=== PATIENT | male | born 1990 | race American Indian/Alaskan Native ===

== ENCOUNTER 2019-02-05 18:00 | Emergency (ER) | payer SELFPAY ==
[2019-02-05 18:08] VITALS: BP 121/74
[2019-02-05 18:30] LABS: Hematocrit 47.8 % (35.5-45.6); Hemoglobin 16.1 gm/dl (11.8-15.2); Mean Corpuscular HGB Conc 34 % (32-34); Mean Corpuscular Volume 91 fl (84-94); Platelet Count 175 K/mm3 (140-440); Red Blood Count 5.24 M/mm3 (3.65-5.03)
[2019-02-05 18:55] LABS: Alanine Aminotransferase 23 units/L (7-56); Albumin 4.6 g/dL (3.9-5); BUN/Creatinine Ratio 18; Blood Urea Nitrogen 16 mg/dL (9-20); Calcium 9.3 mg/dL (8.4-10.2); Hemolysis Index 9
[2019-02-05] MEDS ORDERED: ZOFRAN ODT PO ONE (19:33)
--- NOTE | 2019-02-05 20:12 | Emergency Department Report ---
Vomiting/Diarrhea - HPI Chief Complaint: Nausea/Vomiting/Diarrhea Stated Complaint: DEHYDRATION/DIARRHEA Time Seen by Provider: 02/05/19 19:11 Severity: moderate Nausea/Vomiting Severity: Mild Diarrhea Severity: Moderate Pain Severity: None Symptoms: Yes Watery Diarrhea, Yes Able to Tolerate Fluids, Yes Recent Unusual Foods (chicken "bad"), Yes Contacts w/ Similar Symptoms, No Bloody diarrhea, No Fever, No Recent Untreated Water, No Recent use of Antibiotics, No Family w/ Similar Symptoms, No Rash, No Hematuria, No Recent URI Symptoms ED Review of Systems ROS: Stated complaint: DEHYDRATION/DIARRHEA Other details as noted in HPI Constitutional: denies: chills, fever Eyes: denies: eye pain, eye discharge, vision change ENT: denies: ear pain, throat pain Respiratory: denies: cough, shortness of breath, wheezing Cardiovascular: denies: chest pain, palpitations Endocrine: no symptoms reported Gastrointestinal: nausea, vomiting, diarrhea. denies: abdominal pain, constipation, hematemesis, melena, hematochezia Genitourinary: denies: urgency, dysuria Musculoskeletal: denies: back pain, joint swelling, arthralgia Skin: denies: rash, lesions Neurological: denies: headache, weakness, paresthesias Psychiatric: denies: anxiety, depression Hematological/Lymphatic: denies: easy bleeding, easy bruising ED Past Medical Hx - Past Medical History Previous Medical History?: No - Surgical History Past Surgical History?: No - Social History Smoking Status: Never Smoker Substance Use Type: None - Medications Home Medications: Home Medications Medication Instructions Recorded Confirmed Last Taken Type Diphenoxylate/Atropine [Lomotil] 1 tab PO QID PRN #12 tablet 02/05/19 Unknown Rx Vomiting Diarrhea Exam - Exam General: Vital signs noted. No distress. Alert and acting appropriately. HEENT: Yes Moist Mucous Membranes, No Pharyngeal Erythema, No Pharyngeal Exudates, No Rhinorrhea, No Conjuctival Injection, No Frontal Tenderness, No Maxillary Tenderness Neck: No Adenopathy, No Rigidity Lungs: Yes Clear Lung Sounds, Yes Good Air Exchange, No Wheezes, No Stridor, No Cough, No Nasal Flaring, No Retractions, No Use of Accessory Muscles Heart exam: Regular: Yes, Murmur: No, Tachycardia: No Abdomen: Tenderness: No, Peritoneal Signs: No, Distention: No, Hyperactive Bowel sounds: Yes Skin exam: Rash: No, Edema: No, Normal turgor: Yes Neurologic: Alert and oriented, no deficits. Musculoskeletal: Unremarkable. ED Course Vital Signs 02/05/19 18:06 Temperature 98.6 F Pulse Rate 95 H Respiratory 20 Rate Blood Pressure 121/74 O2 Sat by Pulse 987 H Oximetry ED Medical Decision Making - Lab Data Result diagrams: 02/05/19 18:20 02/05/19 18:20 Labs 02/05/19 02/05/19 18:20 18:20 WBC 10.9 RBC 5.24 H Hgb 16.1 H Hct 47.8 H MCV 91 MCH 31 MCHC 34 RDW 13.0 L Plt Count 175 Seg Neutrophils % [employer] Sodium 140 Potassium 3.8 Chloride 103.1 Carbon Dioxide 22 Anion Gap 19 BUN 16 Creatinine 0.9 Estimated GFR > 60 BUN/Creatinine Ratio 18 Glucose 115 H Calcium 9.3 Total Bilirubin 2.70 H AST 20 ALT 23 Alkaline Phosphatase 88 Total Protein 8.0 Albumin 4.6 Albumin/Globulin Ratio 1.4 - Medical Decision Making symptoms improved pt tolerated po intake without n/v , request lomotil for dc, declines zofran , dicussed bilirubin level pt will follow up with GI in 2-3 days ,continue to hydrate at home return to ed if symptoms worsen, pt verbalized agreement and understanding of discharge plan. Critical care attestation.: If time is entered above; I have spent that time in minutes in the direct care of this critically ill patient, excluding procedure time. ED Disposition Clinical Impression: Nausea vomiting and diarrhea Disposition: DC-01 TO HOME OR SELFCARE Is pt being admited?: No Does the pt Need Aspirin: No Condition: Stable Instructions: Acute Nausea and Vomiting (ED) Prescriptions: Diphenoxylate/Atropine [Lomotil] 1 tab PO QID PRN #12 tablet PRN Reason: diarrhea Referrals: [facility] [Provider Group] - 3-5 Days [place] BHUMIKA CARRILLO MD [Primary Care Provider] - 3-5 Days Forms: Work/School Release Form(ED) Time of Disposition: 20:15
[2019-02-05 20:26] LABS: Basophils % (Manual) 0 % (0.0-1.8); Eosinophils % (Manual) 0 % (0.0-4.3); Platelet Estimate Consistent w Auto; RBC Morphology Normal; Total Cells Counted 100
== END 2019-02-05 20:17 | disposition home or self-care (01) ==
LOC: EDBD → ED 18:00
DX: R19.7 Diarrhea, unspecified (principal); R11.2 Nausea with vomiting, unspecified
CPT/HCPCS: 36415; 80053; 85007; 85025; Q0162